=== PATIENT | male | born 1955 | race Caucasian/White ===

== ENCOUNTER 2017-11-09 08:09 | Outpatient (CLI) | payer SELFPAY | END 2017-11-09 08:10 | disposition home or self-care (01) | LOC: BICMRI 08:09 | PROVIDERS: ATTEND Orthopaedic Surgery | DX: M25.561 Pain in right knee (principal); S83.241A Other tear of medial meniscus, current injury, right knee, initial encounter; M94.261 Chondromalacia, right knee; R60.0 Localized edema; M79.89 Other specified soft tissue disorders ==

== ENCOUNTER 2017-11-28 08:09 | Outpatient (CLI) | payer BC ==
[2017-11-28 09:16] LABS: Hemoglobin 13.6 g/dL (14.0-18.0); Mean Corpuscular HGB CONC 33.7 g/dL (32.0-36.0); Mean Corpuscular Hemoglobin 29.7 pg (27.0-31.0); Mean Corpuscular Volume 87.9 fl (80.0-94.0); Mean Platelet Volume 7.6 fL (7.4-10.4); Platelet Count 187 thou/uL (130-400); RBC Distribution Width 12.5 % (11.5-14.5); White Blood Cell (WBC) Count 5.9 thou/uL (4.8-10.8)
[2017-11-28 09:31] LABS: Anion Gap 14 mmol/L (10-20); BUN (Urea Nitrogen) 18 mg/dL (8.4-25.7); Calc. Creatinine Clearance 0 mL/min (70-130); Calcium 9.7 mg/dL (7.8-10.44); Carbon Dioxide 25 mmol/L (22-29); Chloride 104 mmol/L (98-107); Estimated GFR-MDRD 79; Glucose 165 mg/dL (70-105); Potassium 4.5 mmol/L (3.5-5.1); Sodium 138 mmol/L (136-145)
--- NOTE | 2017-12-01 17:27 | EKG ---
Test Reason : Blood Pressure : / mmHG Vent. Rate : 057 BPM Atrial Rate : 057 BPM P-R Int : 184 ms QRS Dur : 108 ms QT Int : 414 ms P-R-T Axes : 043 012 016 degrees QTc Int : 402 ms Sinus bradycardia Otherwise normal ECG No previous ECGs available Confirmed by DR. Mor MAN ([id number]) on 12/01/2017 5:27:16 PM Referred By: TY Confirmed By:DR. Mor MAN
== END 2017-11-28 08:10 | disposition home or self-care (01) ==
LOC: LABBT 08:09
PROVIDERS: ATTEND Orthopaedic Surgery
DX: Z01.810 Encounter for preprocedural cardiovascular examination (principal); Z01.812 Encounter for preprocedural laboratory examination; S83.241A Other tear of medial meniscus, current injury, right knee, initial encounter
CPT/HCPCS: 80048; 85027; 93005; 93010

== ENCOUNTER 2017-11-29 07:39 | Day surgery (SDC) | payer BC ==
[2017-11-28 08:28] VITALS: BMI 31.5
[2017-11-29] MEDS ORDERED: PROPOFOL 20 ML ONE (09:49)
[2017-11-29] MEDS ORDERED: CEFAZOLIN/Water 2 GM/20 ML SYRINGE ONE (10:03)
[2017-11-29] MEDS ORDERED: Bupivacaine HCl 0.5%/Epinephrine 1:200,000/PF 30 ml Vial ONE ×2 (10:24→13:50)
[2017-11-29] MEDS ORDERED: Promethazine HCl 25 MG/ML VIAL SLOW IVP PRN (11:24)
[2017-11-29] MEDS ORDERED: Ondansetron HCl/PF 4 MG/2 ML Vial IVP PRN (11:24)
[2017-11-29] MEDS ORDERED: Promethazine HCl 25 MG/ML VIAL IM PRN (11:24)
[2017-11-29] MEDS ORDERED: Lidocaine 2% w/Epinephrine 1:200K 20 ML VIAL ONE (13:50)
[2017-11-29] MEDS ORDERED: Dexamethasone 20 MG/5 ML VIAL ONE (14:14)
[2017-11-29] MEDS ORDERED: Ketorolac Tromethamine 30 MG/ML VIAL ONE (14:14)
[2017-11-29] MEDS ORDERED: PROPOFOL 200 MG/20 ML VIAL ONE (14:14)
[2017-11-29] MEDS ORDERED: Ondansetron HCl/PF 4 MG/2 ML Vial ONE (14:14)
[2017-11-29] MEDS ORDERED: ePHEDrine/0.9% NaCl/PF SYRINGE 50 mg/10 ml ONE (14:14)
--- NOTE | 2017-11-29 14:55 | OP ---
PREOPERATIVE DIAGNOSIS: Medial meniscus tear, right knee. POSTOPERATIVE DIAGNOSIS: Medial meniscus tear, right knee. SURGEON: Priyank Sotomayor M.D. ANESTHESIA: General. BLOOD LOSS: Minimal. SPECIMEN: None. DRAINS: None. COMPLICATIONS: None. 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 Complex tear posterior horn medial meniscus, intact lateral compartment, intact ACL, intact pa tellofemoral joint. Scope was placed in the lateral portal and probe was placed in medial portal. T he findings were as above. I debrided the posterior horn of the medial meniscus using basket forceps and smoothed using a 4-0 full radius resector and irrigated the knee, flushing free cartilage fragme nts out of the knee. Sterile dressings applied. There were no complications.
== END 2017-11-29 13:35 | disposition home or self-care (01) ==
LOC: SDC 07:39
PROVIDERS: ATTEND Orthopaedic Surgery
PROC: 0SBC4ZZ Excision of Right Knee Joint, Percutaneous Endoscopic Approach (ICD-10-PCS; principal; 2017-11-29)
DX: S83.206A Unspecified tear of unspecified meniscus, current injury, right knee, initial encounter (principal); M94.261 Chondromalacia, right knee; I10 Essential (primary) hypertension; E78.5 Hyperlipidemia, unspecified; E11.9 Type 2 diabetes mellitus without complications; F17.220 Nicotine dependence, chewing tobacco, uncomplicated; F90.9 Attention-deficit hyperactivity disorder, unspecified type; Z79.82 Long term (current) use of aspirin; Z79.1 Long term (current) use of non-steroidal anti-inflammatories (NSAID); Z79.84 Long term (current) use of oral hypoglycemic drugs; Z79.899 Other long term (current) drug therapy; Z98.890 Other specified postprocedural states
CPT/HCPCS: G8978-GP-CI; G8979-GP-CI; G8980-GP-CI; J0670; J1100; J1885; J2405; J2704

== ENCOUNTER 2018-06-06 07:40 | Outpatient (CLI) | payer BC ==
--- NOTE | 2018-06-06 12:13 | CT ---
CT CHEST NONCONTRAST: Date: 06/06/18 HISTORY: Lung nodule. Follow-up. COMPARISON: 05/03/17. FINDINGS: Mild linear scarring at the lung bases is stable. Tiny subpleural noncalcified nodules at the right a nd left lateral costophrenic angles are unchanged in appearance from the previous study. No new lesio ns. No pleural fluid or pneumothorax. Old left rib fractures are apparent. Lack of contrast limits evaluation of the soft tissues. There is calcification in the coronary arteri es and other arterial structures. Within the partially visualized upper abdomen, dystrophic calcifica tion is associated with the left kidney. Hyperdense stones in the gallbladder lumen. IMPRESSION: 1. Stable CT appearance of tiny bibasilar lung nodules. No new abnormalities. 2. Atherosclerosis. 3. Cholelithiasis. POS: LAWANDA
== END 2018-06-06 07:41 | disposition home or self-care (01) ==
LOC: CT 07:40
PROVIDERS: ATTEND Internal Medicine Critical Care Medicine
DX: R91.1 Solitary pulmonary nodule (principal); I70.90 Unspecified atherosclerosis; K80.20 Calculus of gallbladder without cholecystitis without obstruction; R91.8 Other nonspecific abnormal finding of lung field
CPT/HCPCS: 71250

== ENCOUNTER 2020-05-29 14:45 | Outpatient (CLI) | payer BC ==
--- NOTE | 2020-05-29 15:57 | MRI ---
EXAM: RIGHT KNEE MRI WITHOUT IV CONTRAST: 05/29/20 HISTORY: Primary osteoarthritis right knee, right knee pain, prior meniscal repair. FINDINGS: Multiplanar and multisequence MRI examination of the right knee is performed. There is evidence for l ateral patellar bipartite patella change. Scattered small interosseous cystic changes noted within th e distal femur, probably small interosseous ganglion cyst. Complex flap tear lateral meniscus extendi ng from the posterior root to the body with displaced meniscal flap as well as some minimal intrasubs tance cystic change in the anterior body and anterior horn region. The lateral meniscus shows some sl ight free edge irregularity of the posterior horn possibly small subsurface tears or some fraying. Th ickening and increased signal of the ACL evidence for mucoid degeneration. Less marked changes are no mer in the PCL but without evidence for acute tears. Lateral and medial collateral ligament complexes appear intact. Quadriceps and patellar tendons appear intact. No significant acute abnormal marrow e sherry. IMPRESSION: 1. Flap tear medial meniscus. 2. Minimal free edge irregularity of the posterior horn of the lateral meniscus, evidence for sm all subsurface tears or focal fraying. 3. Lateral bipartite patella. 4. Evidence for ACL mucoid degeneration with less marked changes of the PCL without acute tears. POS: RRE
== END 2020-05-29 14:46 | disposition home or self-care (01) ==
LOC: SCSMRI 14:45
PROVIDERS: ATTEND Orthopaedic Surgery
DX: M17.11 Unilateral primary osteoarthritis, right knee (principal); S83.241A Other tear of medial meniscus, current injury, right knee, initial encounter

== ENCOUNTER 2020-08-19 07:37 | Outpatient (CLI) | payer BC ==
--- NOTE | 2020-08-19 09:55 | MRI ---
MRI LUMBAR SPINE WITHOUT CONTRAST: Date: 08/19/2020 INDICATION: Lumbago with sciatica. Low back pain. FINDINGS: Lumbar vertebra maintain normal height and alignment. Lumbar signal is normal. Moderate degenerative changes are noted with spurring from lumbar vertebra. There are degenerative disc changes. Edema in L 4-5 disc. Superior end plate deformity involving the L5 vertebra with surrounding edema. End plates a re well preserved. L1-2: Broad based disc bulge combined with facet and ligamentous hypertrophy results in mild to mode rate central canal stenosis. L2-3: Diffuse disc bulge with prominent facet and ligamentous hypertrophy results in moderate centra l canal stenosis. L3-4: Broad based disc bulge. Facet hypertrophy. Moderate central canal stenosis. Bilateral foramina l narrowing due to disc bulge and facet hypertrophy. L4-5: High T2 signal in the disc as noted above. Broad based disc bulge. Prominent facet hypertrophy . Moderate central canal stenosis. Bilateral foraminal stenosis, more severe on the right. L5-S1: Diffuse disc bulge. Congenitally smaller thecal sac. Prominent facet hypertrophy. Mild centra l canal stenosis. Bilateral foraminal stenosis. IMPRESSION: 1. Multilevel degenerative change with disc bulge and posterior hypertrophic change at all levels re sulting in central canal stenosis at each level as described above. 2. High T2 signal in the L4-5 disc space, probably represents degenerative disc change with edema. E amarilis diskitis cannot be excluded; however, end plates are well preserved. Recommend clinical correlat ion and follow-up as indicated. POS: JAYMIE
== END 2020-08-19 07:38 | disposition home or self-care (01) ==
LOC: BICMRI 07:37
PROVIDERS: ATTEND Orthopaedic Surgery
DX: M47.816 Spondylosis without myelopathy or radiculopathy, lumbar region (principal); M51.16 Intervertebral disc disorders with radiculopathy, lumbar region; M48.061 Spinal stenosis, lumbar region without neurogenic claudication; M48.07 Spinal stenosis, lumbosacral region; R93.7 Abnormal findings on diagnostic imaging of other parts of musculoskeletal system
CPT/HCPCS: 72148

== ENCOUNTER 2024-04-10 12:34 | Outpatient (CLI) | payer MEDICARE ==
[2024-04-10 13:52] LABS: #Basophils 0.08 10x3/uL (0.0-0.2); #Eosinphils 0.33 10x3/uL (0.0-0.5); #Monocytes 0.57 10x3/uL (0.0-1.1); #Neutrophils 6.15 10x3/uL (1.5-8.4); %Basophils 0.9 % (0.0-2.0); %Eosinophils 3.8 % (0.0-6.0); %Lymphocytes 17.3 % (18.0-47.0); %Monocytes 6.6 % (0.0-10.0); %Neutrophils 70.7 % (40.0-75.0); Hematocrit 39.9 % (38.8-50.0); Hemoglobin 14.1 g/dL (13.5-17.5); Mean Corpuscular HGB CONC 35.3 g/dL (32.0-36.0); Mean Corpuscular Hemoglobin 29.7 pg (27.0-33.0); Mean Corpuscular Volume 84.2 fL (81.2-95.1); Mean Platelet Volume 10.7 fL (7.4-10.4); Platelet Count 191 10x3/uL (150-450); RBC Distribution Width 13.4 % (11.5-14.5); Red Blood Cell (RBC) Count 4.74 10x6/uL (4.32-5.72); White Blood Cell (WBC) Count 8.7 10x3/uL (3.5-10.5)
[2024-04-10 13:59] LABS: ALT (SGPT) 22 U/L (8-55); AST (SGOT) 14 U/L (5-34); Albumin 4.3 g/dL (3.4-4.8); Alkaline Phosphatase 119 U/L (40-110); Anion Gap 17 mmol/L (10-20); BUN (Urea Nitrogen) 18 mg/dL (8.4-25.7); Bilirubin, Total 0.7 mg/dL (0.2-1.2); Calc. Creatinine Clearance 0 mL/min (70-130); Carbon Dioxide 23 mmol/L (23-31); Chloride 103 mmol/L (98-107); Estimated GFR 59; Globulin 2.6 g/dL (2.4-3.5); Glucose 284 mg/dL (80-115); Potassium 5.5 mmol/L (3.5-5.1); Protein, Total 6.9 g/dL (5.8-8.1); Sodium 137 mmol/L (136-145)
== END 2024-04-10 12:35 | disposition home or self-care (01) ==
LOC: LABBT 12:34
PROVIDERS: ATTEND Internal Medicine Cardiovascular Disease
DX: Z01.812 Encounter for preprocedural laboratory examination (principal)
CPT/HCPCS: 80053; 85025

== ENCOUNTER 2024-04-12 05:48 | Day surgery (SDC) | payer MEDICARE ==
[2024-04-12] MEDS ORDERED: Heparin 10,000 UNITS/ 10 ML VIAL ONE (06:25)
[2024-04-12] MEDS ORDERED: Verapamil 5 MG/2 ML VIAL ONE (06:25)
[2024-04-12] MEDS ORDERED: Nitroglycerin 50 MG/250 ML BOT 250 ML ONE (06:25)
[2024-04-12] MEDS ORDERED: Adenosine 6 mg (2 mL) VIAL ONE (06:25)
[2024-04-12] MEDS ORDERED: fentaNYL 50 mcg/mL 1 mL Vial ONE (08:36)
[2024-04-12] MEDS ORDERED: Midazolam HCl 2 mg/2 ml Vial ONE (08:36)
== END 2024-04-12 14:00 | disposition home or self-care (01) ==
LOC: CCL 05:48
PROVIDERS: ATTEND Internal Medicine Cardiovascular Disease
PROC: 4A023N7 Measurement of Cardiac Sampling and Pressure, Left Heart, Percutaneous Approach (ICD-10-PCS; principal; 2024-04-12)
DX: I42.9 Cardiomyopathy, unspecified (principal); R94.39 Abnormal result of other cardiovascular function study; I50.1 Left ventricular failure, unspecified; R06.02 Shortness of breath
CPT/HCPCS: 82962; 93458; C1769; C1894; J1644; J2250; J3010; 36416; 99152; J0153